=== PATIENT | female | born 1955 | race Caucasian/White ===

== ENCOUNTER 2019-12-10 09:46 | Outpatient (CLI) | payer BC, SELFPAY ==
--- NOTE | 2019-12-10 10:00 | CT_ITS ---
WS: [id number] CT LUMBAR SPINE TECHNIQUE: Noncontrast CT of the lumbar spine with coronal and sagittal reformatted images. CLINICAL INFORMATION: Spondylolithesis COMPARISON: MRI September 27, 2019 DLP: 1804.[address] scans at [facility] use at least one of these dose optimization techniques: automat ed exposure control; mA and/or kV adjustment per patient size (includes targeted exams where dose is matched to clinical indication); or iterative reconstruction. FINDINGS: Lumbar scoliosis convex left. Grade 1 anterolisthesis L4 on L5 measuring 8.5 mm. This is unchanged si nce the prior MRI. L1-L2: Normal. L2-L3: Mild annular bulging with slight effacement of ventral thecal sac. Slight narrowing of the lef t subarticular recess. Mild facet arthropathy. Foramen are patent. L3-L4: Mild annular bulging with slight narrowing of the left subarticular recess. Mild central canal stenosis. Foramen are patent. Moderate facet arthropathy. L4-L5: Grade 1 anterolisthesis L4 on L5 with severe central canal stenosis. Grade 1 anterolisthesis. Advanced facet arthropathy. Mild to moderate bilateral foraminal narrowing. L5-S1: Mild disc bulging with a tiny central protrusion. Slight effacement of ventral thecal sac. For amen are patent. Moderate facet arthropathy. Visualized pelvic bony structures: Normal. Paravertebral soft tissues: Normal. CT/CT lumbar spine wo con* [id number] IMPRESSION: 1. Lumbar curve convex right. No acute compression. 2. Stable grade 1 anterolisthesis L4 on L5. 3. Severe central canal stenosis L4-5 is unchanged with advanced facet arthrop athy. 4. Mild/moderate bilateral L4-5 foraminal narrowing. 5. Mild central canal stenosis L3-4 due to mild annular bulging with facet art hropathy and ligamentum flavum hypertrophy. 6. Tiny central protrusion L5-S1 without significant spinal canal or foraminal narrowing at this level.
== END 2019-12-10 09:47 | disposition home or self-care (01) ==
LOC: RADWPI 09:48
PROVIDERS: Family Provider Family Medicine; PCP Family Medicine; Visit Provider Licensed Practical Nurse
DX: M43.16 Spondylolisthesis, lumbar region (principal); M48.061 Spinal stenosis, lumbar region without neurogenic claudication; M47.816 Spondylosis without myelopathy or radiculopathy, lumbar region; M51.27 Other intervertebral disc displacement, lumbosacral region
CPT/HCPCS: 72131

== ENCOUNTER 2020-11-17 13:27 | Outpatient (CLI) | payer BC, SELFPAY ==
--- NOTE | 2020-11-17 13:37 | XR_ITS ---
WS: [id number] SCREENING DEXA SCAN [employer] CLINICAL INFORMATION: AGE-RELATED OSTEOPOROSIS WITHOUT CURRENT PATHOLOGICAL FRACTU COMPARISON: None. FINDINGS: The L1-L4 bone mineral density measures 1.016 g/cm2. This corresponds to a T score score of -1.4 and Z score of -0.8. Left femoral neck bone mineral density measures 0.898 g/cm2. This corresponds to a T score of -0.9 an d Z score of -0.4. Right femoral neck bone mineral density measures 0.888 g/cm2. This corresponds to a T score -1.0of an d Z score of -0.5. Mean femoral neck bone mineral density measures 0.893 g/cm2. This corresponds to a T score of -0.9 an d Z score of -0.4. XR/XR DEXA axial skeleton* [id number] IMPRESSION: Osteopenia Patient's FRAX calculated 10 year probability for major osteoporotic fracture i s 8.1 % and osteoporotic hip fracture is 0.8%.
--- NOTE | 2020-11-17 14:19 | MM_ITS ---
WS: [id number] BILATERAL SCREENING DIGITAL MAMMOGRAM WITH CAD HISTORY: SCREENING COMPARISON: 11/20/2010, 09/11/2012, 10/25/2015 and 09/25/2017 Bilateral CC and MLO views submitted. Computer aided detection analyzed. Breast composition: There are scattered areas of fibroglandular density. No suspicious masses, microc alcifications or architectural distortion. Long-term stability of an area of architectural distortion in the lateral RIGHT breast. No suspicious masses or calcifications. MM/[place] [id number] IMPRESSION: BI-RADS: 2-Benign FOLLOW UP: 1 Year Follow-up
== END 2020-11-17 13:28 | disposition home or self-care (01) ==
LOC: RADSHAW 13:28
PROVIDERS: PCP Family Medicine; Visit Provider Nurse Practitioner Family
DX: Z12.31 Encounter for screening mammogram for malignant neoplasm of breast (principal); M81.0 Age-related osteoporosis without current pathological fracture; M85.80 Other specified disorders of bone density and structure, unspecified site
CPT/HCPCS: 77067; 77080

== ENCOUNTER 2021-05-15 14:59 | Outpatient (CLI) | payer MEDICARE, SELFPAY ==
--- NOTE | 2021-05-15 15:12 | MR_ITS ---
WS: [id number] MRI LUMBAR SPINE NONCONTRAST HISTORY: LUMBOSACRAL SPONDYLOSIS W/RADICULOPATHY COMPARISON: 09/27/2019 TECHNIQUE: Sagittal and axial multisequence imaging is submitted. Mild increase in the thoracic kyphosis. Increase in the lumbar lordosis. L4 anterolisthesis by 10 mm has not significantly progressed since 11/28/2018. Mild degenerative disc disease from L3-4 to L5-S1. No acute marrow edema or fracture. Conus terminates normally at L1. L1-L2: Normal. L2-L3: LEFT foraminal disc protrusion slightly contacts the L2 nerve root. No central stenosis. L3-L4: Mild annular disc bulging and mild ligamentum flavum hypertrophy. Very mild central canal sten osis. L4-L5: Unroofing of the disc due to anterolisthesis. Severe bilateral facet joint arthritis and facet arthritis. Severe central, bilateral subarticular recess and mild bilateral foraminal stenosis. L5-S1: Mild disc bulging contacting the RIGHT S1 nerve root with no displacement. Parapelvic cysts LEFT kidney. Cortical cyst 6 mm RIGHT kidney. MR/MR lumbar spine wo con* [id number] IMPRESSION: 1. Grade 1 anterolisthesis of L4, anterolisthesis by 10 mm is unchanged. 2. Severe central and bilateral subarticular recess and mild foraminal narrowi ng at L4-5. Very similar to the prior study. 3. LEFT foraminal disc protrusion at L2-3 with mild contact on the L2 nerve ro ot. 4. Mild disc contact on the RIGHT S1 nerve root, stable.
== END 2021-05-15 15:00 | disposition home or self-care (01) ==
LOC: RADSHAW 15:07
PROVIDERS: PCP Family Medicine; Visit Provider General Practice
DX: M47.27 Other spondylosis with radiculopathy, lumbosacral region (principal); M51.26 Other intervertebral disc displacement, lumbar region
CPT/HCPCS: 72148

== ENCOUNTER 2022-02-25 18:59 | Emergency (ER) | payer OTHER, MEDICARE, SELFPAY ==
[2022-02-25 19:21] VITALS: BP 186/96; PULSE 99; RESP 18; TEMP 36.6; O2SAT 97; BMI 34.4
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
[2022-02-25] MEDS: ketorolac 60 mg/2 mL INJ IM (19:46)
[2022-02-25] MEDS: orphenadrine 30 mg/mL Inj 2 mL 60 MG IM (19:46)
[2022-02-25 21:43] VITALS: BP 168/78; PULSE 89; RESP 18; O2SAT 98
== END 2022-02-25 21:44 | disposition home or self-care (01) ==
PROVIDERS: Emergency Provider Physician Assistant; PCP Family Medicine
DX: S13.4XXA Sprain of ligaments of cervical spine, initial encounter (principal); V89.2XXA Person injured in unspecified motor-vehicle accident, traffic, initial encounter; Y92.410 Unspecified street and highway as the place of occurrence of the external cause
CPT/HCPCS: 70450; 72125; 96372; 99284; J1885; J2360

== ENCOUNTER → 2022-04-16 14:41 | Outpatient (BNVA) | payer MEDICARE, SELFPAY | PROVIDERS: Visit Provider Family Medicine | DX: I10 Essential (primary) hypertension (principal); Z76.89 Persons encountering health services in other specified circumstances; E78.2 Mixed hyperlipidemia | CPT/HCPCS: 80053; 80061; 85025 ==

== ENCOUNTER → 2022-04-30 14:22 | Outpatient (BNVA) | payer MEDICARE, SELFPAY | PROVIDERS: Visit Provider Family Medicine | DX: Z01.818 Encounter for other preprocedural examination (principal) | CPT/HCPCS: 87635 ==

== ENCOUNTER → 2022-12-23 15:10 | Outpatient (BNVA) | payer MEDICARE, SELFPAY | PROVIDERS: PCP Family Medicine; Visit Provider Family Medicine | DX: D64.9 Anemia, unspecified (principal); E55.9 Vitamin D deficiency, unspecified; I10 Essential (primary) hypertension; K08.109 Complete loss of teeth, unspecified cause, unspecified class | CPT/HCPCS: 80053; 80061; 82652; 82728; 83540; 83735; 84443; 85025 ==

== ENCOUNTER 2023-05-27 04:53 | Emergency (ER) | payer MEDICARE, SELFPAY ==
[2023-05-27 05:01] VITALS: BP 181/84; PULSE 84; RESP 18; TEMP 36.9; O2SAT 97; BMI 33.6
--- NOTE | 2023-05-27 05:03 | XRR_ITS ---
PROCEDURE INFORMATION: Exam: XR Left Elbow Exam date and time: 05/27/2023 5:07 AM Age: 67 years old Clinical indication: Pain; Elbow; Left; Additional info: Injury TECHNIQUE: Imaging protocol: Radiologic exam of the left elbow. Views: 3 or more views. Total images: 1 COMPARISON: No relevant prior studies available. FINDINGS: Bones/joints: Minimal irregularity at the radial neck best seen on lateral view felt to correspond to nondisplaced radial neck fracture. No additional fracture, subluxation, or dislocation detected. Left elbow joint effusion noted. Soft tissues: Normal. XR/XR elbow LT min 3V* [id number] IMPRESSION: 1. Minimal irregularity at the radial neck best seen on lateral view felt to correspond to nondisplaced radial neck fracture. 2. Left elbow joint effusion noted.
--- NOTE | 2023-05-27 05:03 | XRR_ITS ---
PROCEDURE INFORMATION: Exam: XR Left Wrist Exam date and time: 05/27/2023 5:14 AM Age: 67 years old Clinical indication: Pain; Wrist; Left; Additional info: Fall TECHNIQUE: Imaging protocol: Radiologic exam of the left wrist. Views: 3 or more views. Total images: 3 COMPARISON: CR (UP EXM, ) 05/27/2023 5:07 AM FINDINGS: Bones/joints: Normal. Soft tissues: Normal. XR/XR wrist LT min 3V* [id number] IMPRESSION: No acute findings.
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
[2023-05-27] MEDS: HYDROcodone-acetaminophen 5-325 mg Tablet 1 TAB PO (05:11)
[2023-05-27 06:12] VITALS: BP 181/84; PULSE 84; RESP 18; O2SAT 97
--- NOTE | 2023-05-27 07:48 | DCPLANNER ---
Addendum entered by Dot Freitas 06/04/23 09:46: Patient had a follow up appointment scheduled with ortho - patient did attend appointment Original Note: manager credit risk had message to schedule a follow up appointment for patient with ortho. manager credit risk sent patients information to the front office staff at ortho. Patients information will be printed and reviewed. Clinic will call patient with appointment information.
== END 2023-05-27 06:14 | disposition home or self-care (01) ==
PROVIDERS: Emergency Provider Emergency Medicine; PCP Family Medicine
DX: S52.125A Nondisplaced fracture of head of left radius, initial encounter for closed fracture (principal); W18.39XA Other fall on same level, initial encounter
CPT/HCPCS: 73080; 73110; 99283

== ENCOUNTER → 2023-05-29 11:04 | Outpatient (BNVA) | payer MEDICARE, SELFPAY | PROVIDERS: PCP Family Medicine; Referring Provider Emergency Medicine; Visit Provider Student in an Organized Health Care Education/Training Program | DX: S52.122A Displaced fracture of head of left radius, initial encounter for closed fracture (principal); W19.XXXA Unspecified fall, initial encounter | CPT/HCPCS: 24650; 26605; 73080; 99204; A4590 ==

== ENCOUNTER 2023-06-06 14:23 | Outpatient (RCR) | payer MEDICARE, SELFPAY | END 2023-06-26 23:59 | disposition home or self-care (01) | LOC: SOT 14:23 | PROVIDERS: PCP Family Medicine; Visit Provider Student in an Organized Health Care Education/Training Program | DX: S52.124D Nondisplaced fracture of head of right radius, subsequent encounter for closed fracture with routine healing (principal); X58.XXXD Exposure to other specified factors, subsequent encounter | CPT/HCPCS: 97110; 97140; 97166; 97530 ==

== ENCOUNTER → 2023-06-13 11:35 | Outpatient (BNVA) | payer MEDICARE, SELFPAY | PROVIDERS: PCP Family Medicine; Visit Provider Student in an Organized Health Care Education/Training Program | DX: S52.122A Displaced fracture of head of left radius, initial encounter for closed fracture (principal); X58.XXXA Exposure to other specified factors, initial encounter | CPT/HCPCS: 73080; 99213 ==

== ENCOUNTER 2023-06-27 06:00 | Outpatient (RCR) | payer MEDICARE, SELFPAY | END 2023-07-26 23:59 | disposition home or self-care (01) | LOC: SOT 06:00 | PROVIDERS: PCP Family Medicine; Visit Provider Student in an Organized Health Care Education/Training Program | DX: S52.125D Nondisplaced fracture of head of left radius, subsequent encounter for closed fracture with routine healing (principal); W01.0XXD Fall on same level from slipping, tripping and stumbling without subsequent striking against object, subsequent encounter | CPT/HCPCS: 97110 ==

== ENCOUNTER → 2023-07-08 10:24 | Outpatient (BNVA) | payer MEDICARE, SELFPAY | PROVIDERS: PCP Family Medicine; Visit Provider Student in an Organized Health Care Education/Training Program | DX: S52.122A Displaced fracture of head of left radius, initial encounter for closed fracture (principal); X58.XXXA Exposure to other specified factors, initial encounter | CPT/HCPCS: 73080; 99213 ==

== ENCOUNTER 2023-08-14 13:44 | Outpatient (CLI) | payer MEDICARE, SELFPAY ==
--- NOTE | 2023-08-14 13:50 | MM_ITS ---
WS: [id number] Bilateral screening 3D tomosynthesis digital mammogram, 08/14/2023 Clinical Data: BrCA screening Comparison: 11/17/2020, 09/25/2017, 10/25/2015, 09/11/2012, 11/20/2010. Findings: The breast parenchymal pattern shows fibroglandular tissue. No spiculated masses or clustered calcifi cations are seen. There are no secondary signs of carcinoma. There is asymmetric tissue in the latera l left breast unchanged. Impression: 1. Negative bilateral mammogram unchanged. 2. Recommend annual screening mammograms. MM/[place] [id number] BIRADS: 1-Negative FOLLOW UP: 1 Year Follow-up The CAD mold checker was used.
== END 2023-08-14 13:45 | disposition home or self-care (01) ==
LOC: RAD 13:45
PROVIDERS: PCP Family Medicine; Visit Provider Family Medicine
DX: Z12.31 Encounter for screening mammogram for malignant neoplasm of breast (principal)
CPT/HCPCS: 77063; 77067

== ENCOUNTER → 2023-10-07 08:46 | Outpatient (BNVA) | payer MEDICARE, SELFPAY | PROVIDERS: PCP Family Medicine; Visit Provider Student in an Organized Health Care Education/Training Program | DX: S52.122D Displaced fracture of head of left radius, subsequent encounter for closed fracture with routine healing; X58.XXXD Exposure to other specified factors, subsequent encounter | CPT/HCPCS: 73080; 99213 ==

== ENCOUNTER → 2023-10-14 08:39 | Outpatient (BNVA) | payer MEDICARE, SELFPAY | PROVIDERS: PCP Family Medicine; Visit Provider Family Medicine | DX: R31.9 Hematuria, unspecified (principal); N39.0 Urinary tract infection, site not specified | CPT/HCPCS: 81000 ==

== ENCOUNTER → 2024-01-12 15:43 | Outpatient (BNVA) | payer MEDICARE, SELFPAY | PROVIDERS: PCP Family Medicine; Visit Provider Family Medicine | DX: L03.90 Cellulitis, unspecified (principal); S61.459A Open bite of unspecified hand, initial encounter; W55.01XA Bitten by cat, initial encounter; D50.9 Iron deficiency anemia, unspecified; I10 Essential (primary) hypertension; E55.9 Vitamin D deficiency, unspecified | CPT/HCPCS: 80053; 80061; 82306; 82728; 83540; 84443; 85025 ==

== ENCOUNTER → 2024-07-13 10:46 | Outpatient (BNVA) | payer MEDICARE, SELFPAY | PROVIDERS: PCP Family Medicine | DX: R39.9 Unspecified symptoms and signs involving the genitourinary system (principal) | CPT/HCPCS: 81000 ==

== ENCOUNTER 2024-10-01 10:46 | Outpatient (CLI) | payer MEDICARE, SELFPAY ==
--- NOTE | 2024-10-01 11:00 | MM_ITS ---
WS: [id number] BILATERAL SCREENING DIGITAL TOMOSYNTHESIS MAMMOGRAM WITH CAD HISTORY: screening COMPARISON: 08/14/2023, 11/17/2020, 09/25/2017 Bilateral CC and MLO views with tomosynthesis and synthetic mammography submitted. Computer aided det ection analyzed. Breast composition: The breasts are heterogeneously dense, which may obscure small masses. No suspici ous masses, microcalcifications or architectural distortion. Scattered asymmetries within each breast are stable since 2017. No area of distortion. MM/MM scr BI tomosynthesis [id number] IMPRESSION: BI-RADS: 2 - Benign FOLLOW UP: 1 Year Follow-up
== END 2024-10-01 10:47 | disposition home or self-care (01) ==
LOC: RAD 10:47
PROVIDERS: PCP Family Medicine; Visit Provider Family Medicine
DX: Z12.31 Encounter for screening mammogram for malignant neoplasm of breast (principal); R92.333 Mammographic heterogeneous density, bilateral breasts; N64.89 Other specified disorders of breast
CPT/HCPCS: 77063; 77067

== ENCOUNTER → 2025-06-04 16:55 | Outpatient (BNVA) | payer MEDICARE, SELFPAY | PROVIDERS: PCP Family Medicine; Visit Provider Emergency Medicine | DX: R39.9 Unspecified symptoms and signs involving the genitourinary system (principal) | CPT/HCPCS: 81000; 87086 ==

== ENCOUNTER 2025-07-08 11:50 | Outpatient (RCR) | payer MEDICARE, SELFPAY | END 2025-07-26 23:59 | disposition home or self-care (01) | LOC: SPT 11:50 | PROVIDERS: PCP Family Medicine; Visit Provider Nurse Practitioner Acute Care | DX: M54.16 Radiculopathy, lumbar region (principal) | CPT/HCPCS: 97110; 97161 ==

== ENCOUNTER 2025-07-21 10:48 | Outpatient (CLI) | payer MEDICARE, SELFPAY ==
--- NOTE | 2025-07-21 10:53 | MR_ITS ---
WS: [id number] MRI LUMBAR SPINE NONCONTRAST HISTORY: LUMBAR RADICULOPATHY, LEFT hip pain. COMPARISON: 05/15/2021 TECHNIQUE: Sagittal and axial multisequence imaging is submitted. Mild increase in thoracic kyphosis. Since the prior MRI patient's undergone a posterior lumbar fusion at L4-5 with interbody spacer. Anterolisthesis of L4 8.2 mm without progression since the prior study. Remaining disc spaces are slightly narrowed. 3 mm anterolisthesis of L3 is new. Concave deformity inferior endplate of L1 with a small amount of edema is probably a Schmorl's node. Conus terminates normally at L1-2 disc level. L1-L2: Mild foraminal narrowing and mild facet arthritis is new. No high-grade stenosis. L2-L3: Mild annular disc bulging with progression of ligamentum flavum and facet joint arthritis. There is mild disc contact on the traversing L3 nerve roots, LEFT greater than RIGHT. Mild foraminal narrowing. L3-L4: Mild annular disc bulging with marked ligamentum flavum and facet arthritis. Very mild foraminal narrowing. No high-grade stenosis. L4-L5: Large posterior laminectomy defects. Central disc protrusion encroaching on the ventral thecal sac. Severe central with bilateral subarticular recess and foraminal stenosis persists. The extent of central stenosis has improved since 05/15/2021. L5-S1: Mild disc bulging. Very mild contact on the S1 nerve roots. Bilateral laminectomy defects. At least mild foraminal stenosis. Numerous parapelvic cysts. MR/MR lumbar spine wo con* [id number] IMPRESSION: 1. Stable grade 1 anterolisthesis of L4. 2. Interval placement of the posterior lumbar fusion hardware at L4-5 since . 3. Severe central stenosis at L4-5 has improved since the posterior fusion. Th ere is still a severe central stenosis with bilateral subarticular recess and f oraminal stenosis. Disc osteophyte contact and encroachment upon the L4 and L5 nerve roots. 4. Disc bulging at L2-3 contacts the traversing L3 nerve roots, LEFT greater t [place] RIGHT with mild foraminal stenosis. 5. Mild foraminal narrowing at L3-4. 6. Mild disc contact on the S1 nerve roots. Mild foraminal stenosis. 7. New Schmorl's node inferior endplate of L1.
== END 2025-07-21 10:49 | disposition home or self-care (01) ==
LOC: RAD 10:49
PROVIDERS: PCP Family Medicine; Visit Provider Nurse Practitioner Acute Care
DX: M54.16 Radiculopathy, lumbar region (principal)
CPT/HCPCS: 72148

== ENCOUNTER 2025-07-27 05:00 | Outpatient (RCR) | payer MEDICARE, SELFPAY | END 2025-08-25 09:22 | disposition home or self-care (01) | LOC: SPT 05:00 | PROVIDERS: PCP Family Medicine; Visit Provider Nurse Practitioner Acute Care | DX: M54.16 Radiculopathy, lumbar region (principal) | CPT/HCPCS: 97110 ==